=== PATIENT | female | born 1955 | race Caucasian/White ===

== ENCOUNTER 2017-04-01 18:43 | Emergency (ER) | payer OTHER ==
[2017-04-01] MEDS ORDERED: NS 1,000 ML IV ONE (19:05)
[2017-04-01] MEDS ORDERED: PROMETHAZINE HCL 25 MG/ML INJ IVP ONE (19:05)
[2017-04-01] MEDS ORDERED: FAMOTIDINE 20 MG/NACL 50 ML IV ONE (19:05)
[2017-04-01] MEDS ORDERED: ONDANSETRON 4 MG/2 ML VIAL IVP ONE (19:05)
--- NOTE | 2017-04-01 19:18 | EDPHY ---
H & P Time Seen by Provider: 04/01/17 19:02 HPI/ROS: HPI Vomiting. 61-year-old female by private vehicle with family. She is from [facility]. There is a language barrier. Her son is able to translate. Over approximately 40 year she has had intermittent episodes of vomiting which has been unexplained. Prior abdominal surgical history includes cholecystectomy. She was seen in our emergency department in February of 2016 with a similar complaint. She had a CT scan of her abdomen and pelvis at that time which offered no explanation for the reason for her vomiting. She reports the last episode of her vomiting was about 3 weeks ago. She reports that since 04/06 this morning she has had unrelenting vomiting. She has been a.m. able to keep any fluids or solids down. She describes the vomit as yellow which it has been in the past with these episodes. She denies any significant abdominal pain. No headache. No other complaints. ROS: Constitutional: No fever, no chills. No weakness. Eyes: No discharge. No changes in vision. ENT: No sore throat. No nasal congestion or rhinorrhea. Respiratory: No cough. No shortness of breath. Cardiac: No chest pain, no palpitations. Gastrointestinal: No abdominal pain, as above, no diarrhea. Genitourinary: No hematuria. No dysuria or increased frequency with urination. Musculoskeletal: No back pain. No neck pain. No myalgias or arthralgias. Skin: No rashes. Neurological: No headache. No focal weakness or altered sensation. Past medical history: Thyroid disease, questionable peptic ulcer disease, migraine headaches. Social history: Here with family. Nonsmoker. No alcohol. Physical Exam: General Appearance: Alert, no distress. This patient is responding to questions appropriately and in full sentences. This patient appears well- hydrated and well-nourished. Eyes: Pupils equal and round no pallor or injection. No lid edema, erythema or injection. Respiratory: There are no retractions, lungs are clear to auscultation with good air movement bilaterally. Cardiovascular: Regular rate and rhythm. No murmur. Gastrointestinal: Abdomen is soft and nontender, no masses, bowel sounds normal. No focal tenderness at McBurney's point. No Adames sign. Neurological: Motor sensory function is grossly intact. Cranial nerves are normal. Gait is normal. Skin: Warm and dry, no rashes. Musculoskeletal: Neck is supple and nontender. Extremities are symmetrical. All joints range without pain or impingement. Psychiatric: No agitation. No depression. Database: EKG: EKG time is 8:54 p.m.; EKG shows a narrow complex normal sinus rhythm with a ventricular rate of 92. The OH, QRS, QT intervals are within normal limits. There are no ST-T wave changes indicative of ischemic or injury pattern. No evidence of right heart strain. Interpreted by me. Imaging: CT abdomen and pelvis with IV contrast: No significant pathology. No evidence of obstruction or malignant process. No significant change from prior study. Results were discussed with staff radiologist Dr. Pancho Boo. Procedures: Emergency department course: IV placed. She was placed on a early childhood aide classroom. She was started on IV normal saline with 1-2 L to be given over the next 1-2 hours. She was initially given 4 mg of IV Zofran, 6.25 mg of IV Phenergan and 20 mg of IV Pepcid. She describes her vomit as yellowish. CT scan of the abdomen and pelvis will be obtained to evaluate for obstruction or possible malignancy. 9:15 p.m., patient re-evaluated. Resting comfortably at this time. She is taking oral fluids without difficulty. Results of her emergency department testing were discussed with her and family. She does feel comfortable going home at this time. Repeat abdominal exam she is soft, nontender nondistended. I discussed follow-up through her primary care physician. I also discussed follow-up with a wedger. Return to emergency department precautions were reviewed thoroughly. All of their questions were answered. The patient was discharged home in good condition. Differential Diagnosis: The differential diagnosis on this patient includes but is not limited to gastritis, bowel obstruction, cyclic vomiting syndrome, food-borne illness. This represents a partial list of diagnoses considered. These considerations are based on history, physical exam, past history, reassessment and diagnostic testing. Smoking Status: Never smoked Constitutional: Initial Vital Signs Temperature (C) 36.7 C 04/01/17 18:45 Heart Rate 64 04/01/17 18:45 Respiratory Rate 18 04/01/17 18:45 Blood Pressure 106/81 H 04/01/17 18:45 O2 Sat (%) 100 04/01/17 18:45 O2 Delivery Mode Room Air Allergies/Adverse Reactions: No Known Allergies Allergy (Verified 04/01/17 18:44) Home Medications: Medication Instructions Recorded Ondansetron Odt [Zofran Odt 4 mg 4 mg PO Q4PRN PRN #10 tab 04/01/17 (*)] Medical Decision Making - Diagnostics Imaging Results: Imaging Impressions Abdomen CT 04/01/17 19:14 Impression: 1. No new significant abnormality within the abdomen and pelvis. 2. No CT evidence of appendicitis, abscess or bowel obstruction. 3. Stable 10 mm adnexal cyst on the right. Findings discussed with Chele Aldrich MD at 20:40 hour, 04/01/2017. - Data Points Laboratory Results: Laboratory Results 04/01/17 19:24 04/01/17 19:24 04/01/17 04/01/17 19:24 19:24 WBC 11.84 10^3/uL H 10^3/uL (3.80-9.50) RBC 4.85 10^6/uL 10^6/uL (4.18-5.33) Hgb 14.4 g/dL g/dL (12.6-16.3) Hct 39.2 % % (38.0-47.0) MCV 80.8 fL L fL (81.5-99.8) MCH 29.7 pg pg (27.9-34.1) MCHC 36.7 g/dL g/dL (32.4-36.7) RDW 12.2 % % (11.5-15.2) Plt Count 251 10^3/uL 10^3/uL (150-400) MPV 10.2 fL fL (8.7-11.7) Neut % (Auto) 73.6 % % (39.3-74.2) Lymph % (Auto) 21.0 % % (15.0-45.0) [place] % (Auto) 4.2 % L % (4.5-13.0) Eos % (Auto) 0.2 % L % (0.6-7.6) Baso % (Auto) 0.3 % % (0.3-1.7) Nucleat RBC Rel Count 0.0 % % (0.0-0.2) Absolute Neuts (auto) 8.71 10^3/uL H 10^3/uL (1.70-6.50) Absolute Lymphs (auto) 2.49 10^3/uL 10^3/uL (1.00-3.00) Absolute Monos (auto) 0.50 10^3/uL 10^3/uL (0.30-0.80) Absolute Eos (auto) 0.02 10^3/uL L 10^3/uL (0.03-0.40) Absolute Basos (auto) 0.04 10^3/uL 10^3/uL (0.02-0.10) Absolute Nucleated RBC 0.00 10^3/uL 10^3/uL (0-0.01) Immature Gran % 0.7 % % (0.0-1.1) Immature Gran # 0.08 10^3/uL 10^3/uL (0.00-0.10) Sodium 137 mEq/L mEq/L (134-144) Potassium 3.5 mEq/L mEq/L (3.5-5.2) Chloride 102 mEq/L mEq/L (97-110) Carbon Dioxide 20 mEq/l L mEq/l (22-31) Anion Gap 15 mEq/L mEq/L (8-16) BUN 12 mg/dL mg/dL (7-23) Creatinine 0.5 mg/dL L mg/dL (0.6-1.0) Estimated GFR > 60 Glucose 123 mg/dL H mg/dL (70-100) Calcium 9.8 mg/dL mg/dL (8.5-10.4) Total Bilirubin 1.2 mg/dL mg/dL (0.1-1.4) Conjugated Bilirubin 0.2 mg/dL mg/dL (0.0-0.5) Unconjugated Bilirubin 1.0 mg/dL mg/dL (0.0-1.1) AST 27 IU/L IU/L (14-46) ALT 40 IU/L IU/L (9-52) Alkaline Phosphatase 152 IU/L H IU/L (38-126) Total Protein 8.0 g/dL g/dL (6.3-8.2) Albumin 4.6 g/dL g/dL (3.5-5.0) Lipase 124 IU/L IU/L (23-300) Medications Given: Discontinued Medications Sodium Chloride (Ns) 1,000 mls @ 0 mls/hr IV EDNOW ONE; Wide Open PRN Reason: Protocol Stop: 04/01/17 19:06 Last Admin: 04/01/17 19:40 Dose: 1,000 mls Famotidine/Sodium Chloride (Pepcid 20 Mg (Premix)) 50 mls @ 200 mls/hr IV EDNOW ONE Stop: 04/01/17 19:19 Last Admin: 04/01/17 19:41 Dose: 50 mls Ondansetron HCl (Zofran) 4 mg IVP EDNOW ONE Stop: 04/01/17 19:06 Last Admin: 04/01/17 19:42 Dose: 4 mg Promethazine HCl (Phenergan) 6.25 mg IVP EDNOW ONE Stop: 04/01/17 19:06 Last Admin: 04/01/17 19:41 Dose: 6.25 mg Departure - Departure Disposition: Home, Routine, Self-Care Clinical Impression: Vomiting Condition: Good Instructions: Acute Nausea and Vomiting (ED) Additional Instructions: Read and follow provided instructions. Follow-up with your primary care physician in 1-2 days for re-evaluation as discussed. I have also provided you a referral to a wedger. You can call for an appointment tomorrow. Take medication as prescribed for nausea. Return to the emergency department for vomiting and inability to keep fluids down despite medications, worsening abdominal pain, rectal bleeding or other serious concerns. Referrals: [facility] [Other] - As per Instructions Prescriptions: Ondansetron Odt [Zofran Odt 4 mg (*)] 4 mg PO Q4PRN PRN #10 tab PRN Reason: For Nausea & Vomiting
[2017-04-01 19:32] LABS: % IMMATURE GRANULYOCYTES 0.7 % (0.0-1.1); ABSOLUTE IMMATURE GRANULOCYTES 0.08 10^3/uL (0.00-0.10); ADD DIFF? NO; ADD MORPH? NO; ADD SCAN? NO; ATYPICAL LYMPHOCYTE FLAG 0 (0-99); FRAGMENT RBC FLAG 0 (0-99); HEMATOCRIT 39.2 % (38.0-47.0); HEMOGLOBIN 14.4 g/dL (12.6-16.3); LEFT SHIFT FLG 0 (0-99); LIPEMIA HEMOLYSIS FLAG 90 (0-99); MEAN CELL HEMOGLOBIN 29.7 pg (27.9-34.1); MEAN CELL HEMOGLOBIN CONCENTR. 36.7 g/dL (32.4-36.7); MEAN CELL VOLUME 80.8 fL (81.5-99.8); MEAN PLATELET VOLUME 10.2 fL (8.7-11.7); PLATELET CLUMPS FLAG 0 (0-99); PLATELET COUNT 251 10^3/uL (150-400); RED BLOOD CELL COUNT 4.85 10^6/uL (4.18-5.33); RED CELL DISTRIBUTION WIDTH 12.2 % (11.5-15.2)
[2017-04-01 19:55] LABS: ALANINE AMINOTRANSFERASE 40 IU/L (9-52); ALBUMIN 4.6 g/dL (3.5-5.0); ALKALINE PHOSPHATASE 152 IU/L (38-126); ANION GAP 15 mEq/L (8-16); ASPARTATE AMINOTRANSFERASE 27 IU/L (14-46); BILIRUBIN,TOTAL 1.2 mg/dL (0.1-1.4); BILIRUBIN-CONJUGATED 0.2 mg/dL (0.0-0.5); CALCIUM 9.8 mg/dL (8.5-10.4); CARBON DIOXIDE 20 mEq/l (22-31); CHLORIDE 102 mEq/L (97-110); CREATININE 0.5 mg/dL (0.6-1.0); GLOMERULAR FILTRATION RATE > 60; GLUCOSE 123 mg/dL (70-100); POTASSIUM 3.5 mEq/L (3.5-5.2); SODIUM 137 mEq/L (134-144)
[2017-04-01] MEDS ORDERED: IOPAMIDOL (ISOVUE-300) 100 ML BTL ONE (20:00)
--- NOTE | 2017-04-01 20:55 | CPEKG ---
Heart Rate: 92 RR Interval: 652 P-R Interval: 152 QRSD Interval: 80 QT Interval: 376 QTC Interval: 466 P [place]: 41 QRS [place]: -14 T Wave [place]: 50 EKG Severity - BORDERLINE ECG - EKG Impression: SINUS RHYTHM EKG Impression: BORDERLINE T ABNORMALITIES, ANTERIOR LEADS Electronically Signed By: Chele Aldrich 01-Apr-2017 23:37:29
[2017-04-01] MEDS ORDERED: ONDANSETRON 4MG PREPACK#2 BTL TAKEHOME ONE (21:19)
[2017-04-01 21:34] VITALS: BP 114/77; PULSE 100; RESP 16; TEMP 99; O2SAT 96
== END 2017-04-01 21:32 | disposition home or self-care (01) ==
DX: R11.10 Vomiting, unspecified (principal); E86.9 Volume depletion, unspecified
CPT/HCPCS: 96365; J2405; J2550; Q9967

== ENCOUNTER 2017-10-24 18:56 | Emergency (ER) | payer OTHER ==
[2017-10-24 19:09] VITALS: BP 128/80
--- NOTE | 2017-10-24 19:37 | EDPHY ---
H & P Time Seen by Provider: 10/24/17 19:10 HPI/ROS: Chief complaint. Ear pain HPI. Patient's 8-year-old female with left ear pain for the past 5 days. No fever. No injury. No history. No upper respiratory symptoms. Taking Tylenol with inadequate relief. Patient speaks only no poly. ROS Constitutional. no fever/chills, no weakness Eyes. no problems with vision ENT. Left ear pain Cardiovascular. no chest pain Respiratory. no shortness of breath, no cough Abdominal. no abdominal pain, no nausea/vomiting, no diarrhea . no problems urinating MS. no calf pain/swelling, no neck/back pain, no joint pain Skin. no rash Lymph. no swollen glands Neuro. no headache, no dizziness, no difficulty walking or with speech Past Medical/Surgical History: Gastritis, thyroid, migraines Social History: , nonsmoker, no alcohol Smoking Status: Never smoked Physical Exam: General Appearance: Alert well-developed female mild distress vital signs are stable Eyes: Pupils equal and round no pallor or injection. ENT, pharynx normal without injection. Both tympanic membranes are normal there is some discomfort with movement of the ear and slight erythema in the ear canal Respiratory: There are no retractions, lungs are clear to auscultation. Cardiovascular: Regular rate and rhythm. Gastrointestinal: Abdomen is soft and nontender, no masses, bowel sounds normal. Neurological: Awake and alert, sensory and motor exams grossly normal. Skin: Warm and dry, no rashes. Musculoskeletal: Neck is supple nontender. Extremities symmetrical, full range of motion. Psychiatric: Patient is oriented X 3, there is no agitation. Constitutional: Initial Vital Signs Temperature (C) 36.6 C 10/24/17 19:08 Heart Rate 73 10/24/17 19:08 Respiratory Rate 18 10/24/17 19:08 Blood Pressure 128/80 H 10/24/17 19:08 O2 Sat (%) 99 10/24/17 19:08 O2 Delivery Mode Room Air Allergies/Adverse Reactions: No Known Allergies Allergy (Verified 10/24/17 19:09) Home Medications: Medication Instructions Recorded Neomy Sulf/Polymyx B Sulf/Hc 4 drops OT TID #1 solution 10/24/17 [Cortisporin Otic (*)] Medical Decision Making ED Course/Re-evaluation: Indonesian full time staff interpreter Differential Diagnosis: I believe this is likely otitis externa. No evidence of otitis media. No evidence of pharyngitis Departure - Departure Disposition: Home, Routine, Self-Care Clinical Impression: Left otitis externa Qualifiers: Otitis externa type: unspecified type Chronicity: acute Qualified Code(s): H60.502 - Unspecified acute noninfective otitis externa, left ear Condition: Good Instructions: Otitis Externa (ED) Additional Instructions: Cortisporin drops using 4 drops in left ear three times per day for 1 week. Tylenol 650 mg every 4-6 hours, ibuprofen 400 mg every 6 hr for discomfort. Return for worsening symptoms. Recheck in 2-3 days if not improved Referrals: NONE *PRIMARY CARE P,. [Primary Care Provider] - As per Instructions Prescriptions: Neomy Sulf/Polymyx B Sulf/Hc [Cortisporin Otic (*)] 4 drops OT TID #1 solution
[2017-10-24] MEDS ORDERED: IBUPROFEN 200 MG TAB PO ONE (19:41)
== END 2017-10-24 19:52 | disposition home or self-care (01) ==
DX: H60.502 Unspecified acute noninfective otitis externa, left ear (principal)